=== PATIENT | female | born 1975 | race American Indian/Alaskan Native ===

== ENCOUNTER 2016-11-20 04:32 | Emergency (ER) | payer BC | END 2016-11-20 04:47 | disposition left against medical advice (07) | LOC: ED 04:32 | DX: S49.92XA Unspecified injury of left shoulder and upper arm, initial encounter (principal); Z53.21 Procedure and treatment not carried out due to patient leaving prior to being seen by health care provider; X58.XXXA Exposure to other specified factors, initial encounter; Y93.9 Activity, unspecified; Y92.9 Unspecified place or not applicable; Y99.9 Unspecified external cause status ==